=== PATIENT | male | born 1985 | race Caucasian/White ===

== ENCOUNTER 2022-09-17 00:19 | Emergency (ER) | payer MEDICARE, OTHER ==
[~2022-09-17] VITALS: Ht 180.3 cm; Wt 121.6 kg
[~2022-09-17 00:19] MED LIST: NORCO 7.5-3251 EACH PO; TRAMADOL HCL50 MG PO; ULTRAM50 MG PO
--- OUTSIDE RECORDS SUMMARY | 2022-09-17 00:22 | XMS ---
PreManage Notification: CHRIS AUGUSTE [employer] Supervisor Events No recent Security Events currently on file CRITERIA MET - [facility] CARE PROVIDERS There are no care providers on record at this time. Edith has no Care Guidelines for this patient. Ami VISIT COUNT (12 MO.) [address] [place] [id number] DEVEN Carranza TOTAL 3 NOTE: Visits indicate total known visits. ED/C VISIT TRACKING (12 MO.) 09/17/2022 00:21 [facility] [place] TYPE: Emergency COMPLAINT: - DIABETIC ISSUE 12/18/2021 00:01 [facility] [place] TYPE: Emergency DIAGNOSES: - Type 2 diabetes mellitus with hyperglycemia - HIGH BS FAINT VISION BLURRY 10/30/2021 20:25 [facility] [place] TYPE: Emergency DIAGNOSES: - Acute kidney failure, unspecified - Dehydration - Hyperglycemia, unspecified - HIGH BLOOD SUGAR INPATIENT VISIT TRACKING (12 MO.) No inpatient visits to display in this time frame [email or web address]
[2022-09-17] MEDS ORDERED: PIOGLITAZONE HC30 MG PO (00:42)
[2022-09-17] MEDS ORDERED: HYDROCHLOROTHIA25 MG PO (00:42)
[2022-09-17] MEDS ORDERED: METFORMIN HCL500 M1 PO (00:42)
[2022-09-17] MEDS ORDERED: OMEPRAZOLE20 MG PO (00:42)
[2022-09-17] MEDS ORDERED: ROSUVASTATIN CA10 MG PO (00:42)
[2022-09-17] MEDS ORDERED: OXYCODONE-ACET1 EAC3 PO (00:42)
[2022-09-17 02:00] VITALS: BP 127/68
== END 2022-09-17 02:05 | disposition home or self-care (01) ==
LOC: ED 00:19
DX: E11.65 Type 2 diabetes mellitus with hyperglycemia (principal); I10 Essential (primary) hypertension; E78.5 Hyperlipidemia, unspecified; Z88.5 Allergy status to narcotic agent; Z79.899 Other long term (current) drug therapy; Z79.84 Long term (current) use of oral hypoglycemic drugs
CPT/HCPCS: 36415; 80053; 82010; 82803; 85025; 99284; J7121